=== PATIENT | male | born 2000 | race Two or more races ===

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

== ENCOUNTER 2022-09-24 14:06 | Inpatient (IN) | payer MEDICAID, OTHER ==
[~2022-09-24] VITALS: Ht 180.3 cm; Wt 80.4 kg
[~2022-09-24 14:06] MED LIST: DIVA500T53 PO; FOLI-130 PO; GUAN1TAB2 PO; MELA5TAB40 PO; MULT-1239 PO; OLAN5TAB94 PO; OMEG-135 PO; THIA100T80 PO
[2022-09-24] MEDS ORDERED: BACITRACIN 0.9 GM PACKET OINTMENT TP ONE (15:00)
[2022-09-24] MEDS ORDERED: LORazepam 2 MG/ML VIAL IM ONE (15:15)
[2022-09-24] MEDS ORDERED: DiphenhydrAMINE HCL 50 MG/ML VIAL IM ONE (15:15)
[2022-09-24] MEDS ORDERED: HALOPERIDOL LACTATE 5 MG/ML VIAL IM ONE (15:15)
[2022-09-24 15:46] LABS: COVID AG,FIA SOURCE NASOPHARYNGEAL
[2022-09-24 16:27] LABS: BASOPHILS % (AUTO) 0.5 % (0.0-2.0); EOSINOPHILS % (AUTO) 0.9 % (1.0-6.0); HEMATOCRIT 41.3 % (41-53); HEMOGLOBIN 13.8 g/dL (13.5-17.5); LYMPHOCYTES # (AUTO) 1.8 K/uL (1.0-4.8); LYMPHOCYTES % (AUTO) 16.5 % (22.0-44.0); MEAN CORPUSCULAR HEMOGLOBIN 33.8 pg (26.0-34.0); MEAN CORPUSCULAR HGB CONC 33.3 G/dL (31.0-37.0); MEAN CORPUSCULAR VOLUME 101 fL (80-100); MONOCYTES # (AUTO) 1.1 K/uL (0.1-1.0); MONOCYTES % (AUTO) 10.2 % (2.0-9.0); NEUTROPHILS # (AUTO) 7.9 K/uL (1.8-7.7); NEUTROPHILS % (AUTO) 71.9 % (40.0-70.0); PLATELET COUNT (AUTO) 202 K/uL (150-450); RED BLOOD CELL COUNT(AUTO) 4.08 MIL/uL (4.50-5.90); RED CELL DISTRIBUTION WIDTH 12.6 % (11.5-14.5)
[2022-09-24 16:35] LABS: ANION GAP 11 mmol/L (8-16); CALCIUM, TOTAL 9.8 mg/dL (8.8-10.5); CARBON DIOXIDE 28 mmol/L (22-29); CHLORIDE 103 mmol/L (98-107); GLOMERULAR FILTR. RATE CALC > 60 mL/min (>60); GLUCOSE,RANDOM 91 mg/dL (70-110); POTASSIUM 4.1 mmol/L (3.5-5.1); SODIUM SERUM 142 mmol/L (136-145); UREA NITROGEN, BLOOD 15 mg/dL (7-18)
[2022-09-24 16:41] LABS: ALANINE AMINOTRANSFERASE 61 U/L (12-78); ALKALINE PHOSPHATASE 66 U/L (46-116); ASPARTATE AMINOTRANSFERASE 52 U/L (15-37); BILIRUBIN,TOTAL 0.2 mg/dL (0.1-1.0); TOTAL PROTEIN, SERUM 7.6 g/dL (6.4-8.2)
[2022-09-24 17:00] LABS: AMPHET/METH SCREEN,URINE NEGATIVE (NEGATIVE); BARBITURATE SCREEN, URINE NEGATIVE (NEGATIVE); BENZODIAZEPINES SCREEN,URINE NEGATIVE (NEGATIVE); CANNABINOID SCREEN,URINE NEGATIVE (NEGATIVE); COCAINE SCREEN,URINE NEGATIVE (NEGATIVE); METHADONE SCREEN, URINE NEGATIVE (NEGATIVE); OPIATE SCREEN,URINE NEGATIVE (NEGATIVE); PHENCYCLIDINE SCREEN,URINE NEGATIVE (NEGATIVE)
[2022-09-24] MEDS ORDERED: LORazepam 2 MG TABLET PO PRN (23:15)
[2022-09-24] MEDS ORDERED: HALOPERIDOL 5 MG TABLET PO PRN (23:15)
[2022-09-24] MEDS ORDERED: ZOLPIDEM TARTRATE 10 MG TABLET PO PRN (23:15)
[2022-09-25] MEDS ORDERED: GuaiFENesin/D-METHORPHAN [SUGAR-FREE] 200-20MG/10 ML SYRUP UDCUP PO PRN (09:30)
[2022-09-25] MEDS ORDERED: ACETAMINOPHEN 325 MG TABLET PO PRN (09:30)
[2022-09-25] MEDS ORDERED: CloNIDine HCL 0.1 MG TABLET PO PRN (09:30)
[2022-09-25] MEDS ORDERED: IBUPROFEN 400 MG TABLET PO PRN (09:30)
[2022-09-25] MEDS ORDERED: MAGNESIUM HYDROXIDE SUSPENSION 30 ML UDCUP PO PRN (09:30)
[2022-09-25] MEDS ORDERED: PETROLATUM,WHITE 28 GM JELLY TP PRN (09:30)
[2022-09-25] MEDS ORDERED: ONDANSETRON HCL 4 MG TABLET PO PRN (09:30)
[2022-09-25] MEDS ORDERED: DOCUSATE SODIUM 100 MG CAPSULE PO PRN (09:30)
[2022-09-25] MEDS ORDERED: NICOTINE 14 MG/24 HOUR PATCH TD PRN (09:30)
[2022-09-25] MEDS ORDERED: LOPERAMIDE HCL 2 MG CAPSULE PO PRN (09:30)
[2022-09-25] MEDS ORDERED: MAG HYDROX/AL HYDROX/SIMETH ES 30 ML SUSPENSION UDCUP PO PRN (09:30)
[2022-09-25] MEDS ORDERED: ALBUTEROL SULFATE HFA 90 MCG/PUFF 8 GM INHALER IH PRN (09:30)
[2022-09-25 10:24] VITALS: BP 130/95
[2022-09-25] MEDS: LORazepam 2 MG TABLET PO PRN (13:26)
[2022-09-25] MEDS: HALOPERIDOL 5 MG TABLET PO PRN (13:26)
[2022-09-25] MEDS ORDERED: PNEUMOCOCCAL VACCINE POLYVALENT 0.5 ML VIAL [PPSV23] IM. ONE (14:15)
[2022-09-25] MEDS ORDERED: INFLUENZA VIRUS VACCINE QVS 2022-23 (6MO+)/PF 60 MCG/0.5 ML SYRINGE IM. ONE (14:15)
[2022-09-25] MEDS: BACITRACIN 28 GM OINTMENT TP SCH (16:28)
[2022-09-25] MEDS: THIAMINE 100 MG TABLET PO SCH (16:28)
[2022-09-25] MEDS: MELATONIN 5 MG TABLET PO SCH (20:20)
[2022-09-25 23:58] VITALS: BP 124/89
[2022-09-26 08:10] VITALS: BP 131/76
[2022-09-26] MEDS: HALOPERIDOL 5 MG TABLET PO PRN ×2 (08:31→16:07)
[2022-09-26] MEDS: THIAMINE 100 MG TABLET PO SCH ×2 (08:31→16:06)
[2022-09-26] MEDS: LORazepam 2 MG TABLET PO PRN ×3 (08:31→20:21)
[2022-09-26] MEDS: FOLIC ACID 1 MG TABLET PO SCH (08:31)
[2022-09-26] MEDS: OMEGA-3/DHA/EPA/FISH OIL 1,000 MG CAPSULE PO SCH (08:31)
[2022-09-26] MEDS: BACITRACIN 28 GM OINTMENT TP SCH ×2 (08:32→16:12)
[2022-09-26] MEDS: DIVALPROEX SODIUM 500 MG ER TABLET PO SCH ×3 (10:40→20:25)
[2022-09-26] MEDS: MELATONIN 5 MG TABLET PO SCH (20:21)
[2022-09-26] MEDS: OLANZapine 5 MG RAPDIS TABLET PO SCH (20:21)
[2022-09-26] MEDS: ZOLPIDEM TARTRATE 10 MG TABLET PO PRN (20:21)
[2022-09-26 20:22] VITALS: BP 136/82
[2022-09-27 08:10] VITALS: BP 117/70
[2022-09-27] MEDS: OMEGA-3/DHA/EPA/FISH OIL 1,000 MG CAPSULE PO SCH (08:49)
[2022-09-27] MEDS: THIAMINE 100 MG TABLET PO SCH ×2 (08:49→16:31)
[2022-09-27] MEDS: DIVALPROEX SODIUM 500 MG ER TABLET PO SCH ×3 (08:49→20:38)
[2022-09-27] MEDS: FOLIC ACID 1 MG TABLET PO SCH (08:49)
[2022-09-27] MEDS: HALOPERIDOL 5 MG TABLET PO PRN (08:49)
[2022-09-27] MEDS: BACITRACIN 28 GM OINTMENT TP SCH ×2 (08:50→16:31)
[2022-09-27] MEDS: LORazepam 2 MG TABLET PO PRN ×3 (08:50→20:39)
[2022-09-27] MEDS: OLANZapine 5 MG RAPDIS TABLET PO SCH (20:38)
[2022-09-27] MEDS: ZOLPIDEM TARTRATE 10 MG TABLET PO PRN (20:39)
[2022-09-27] MEDS: MELATONIN 5 MG TABLET PO SCH (20:39)
[2022-09-27 22:19] VITALS: BP 140/83
[2022-09-28 08:44] VITALS: BP 117/70
[2022-09-28] MEDS: FOLIC ACID 1 MG TABLET PO SCH (08:49)
[2022-09-28] MEDS: THIAMINE 100 MG TABLET PO SCH ×2 (08:49→17:49)
[2022-09-28] MEDS: DIVALPROEX SODIUM 500 MG ER TABLET PO SCH ×3 (08:49→21:04)
[2022-09-28] MEDS: OMEGA-3/DHA/EPA/FISH OIL 1,000 MG CAPSULE PO SCH (08:49)
[2022-09-28] MEDS: BACITRACIN 28 GM OINTMENT TP SCH ×2 (08:49→17:48)
[2022-09-28] MEDS ORDERED: DiphenhydrAMINE HCL 50 MG/ML VIAL ONE (11:05)
[2022-09-28] MEDS ORDERED: LORazepam 2 MG/ML VIAL ONE (11:05)
[2022-09-28] MEDS ORDERED: HALOPERIDOL LACTATE 5 MG/ML VIAL ONE (11:05)
[2022-09-28] MEDS ORDERED: DiphenhydrAMINE HCL 50 MG/ML VIAL IM ONE (11:15)
[2022-09-28] MEDS ORDERED: HALOPERIDOL LACTATE 5 MG/ML VIAL IM ONE (11:15)
[2022-09-28] MEDS ORDERED: LORazepam 2 MG/ML VIAL IM ONE (11:15)
[2022-09-28 20:24] VITALS: BP 122/83
[2022-09-28] MEDS: OLANZapine 5 MG RAPDIS TABLET PO SCH (21:06)
[2022-09-28] MEDS: MELATONIN 5 MG TABLET PO SCH (21:06)
[2022-09-29 08:20] VITALS: BP 137/82
[2022-09-29] MEDS: OMEGA-3/DHA/EPA/FISH OIL 1,000 MG CAPSULE PO SCH (08:28)
[2022-09-29] MEDS: FOLIC ACID 1 MG TABLET PO SCH (08:28)
[2022-09-29] MEDS: THIAMINE 100 MG TABLET PO SCH ×2 (08:28→16:47)
[2022-09-29] MEDS: DIVALPROEX SODIUM 500 MG ER TABLET PO SCH ×3 (08:28→20:08)
[2022-09-29] MEDS: BACITRACIN 28 GM OINTMENT TP SCH ×2 (08:30→16:48)
[2022-09-29] MEDS: LORazepam 2 MG TABLET PO PRN (12:52)
[2022-09-29] MEDS: HALOPERIDOL 5 MG TABLET PO PRN (12:53)
[2022-09-29] MEDS ORDERED: DiphenhydrAMINE HCL 50 MG/ML VIAL ONE (13:27)
[2022-09-29] MEDS ORDERED: HALOPERIDOL LACTATE 5 MG/ML VIAL ONE (13:28)
[2022-09-29] MEDS ORDERED: LORazepam 2 MG/ML VIAL IM ONE (13:30)
[2022-09-29] MEDS ORDERED: DiphenhydrAMINE HCL 50 MG/ML VIAL IM ONE (13:30)
[2022-09-29] MEDS ORDERED: HALOPERIDOL DECANOATE 50 MG/ML VIAL IM ONE (13:30)
[2022-09-29] MEDS ORDERED: HALOPERIDOL LACTATE 5 MG/ML VIAL IM ONE (14:00)
[2022-09-29] MEDS: MELATONIN 5 MG TABLET PO SCH (20:08)
[2022-09-29] MEDS: OLANZapine 5 MG RAPDIS TABLET PO SCH (20:08)
[2022-09-29 20:14] VITALS: BP 124/76
[2022-09-30] MEDS: DIVALPROEX SODIUM 500 MG ER TABLET PO SCH ×3 (07:52→20:33)
[2022-09-30] MEDS: OMEGA-3/DHA/EPA/FISH OIL 1,000 MG CAPSULE PO SCH (07:53)
[2022-09-30] MEDS: THIAMINE 100 MG TABLET PO SCH ×2 (07:53→16:27)
[2022-09-30] MEDS: LORazepam 2 MG TABLET PO PRN ×3 (07:53→20:33)
[2022-09-30] MEDS: FOLIC ACID 1 MG TABLET PO SCH (07:53)
[2022-09-30] MEDS: HALOPERIDOL 5 MG TABLET PO PRN ×2 (07:53→16:27)
[2022-09-30 08:10] VITALS: BP 132/89
[2022-09-30] MEDS: BACITRACIN 28 GM OINTMENT TP SCH ×2 (10:18→17:05)
[2022-09-30] MEDS: OLANZapine 5 MG RAPDIS TABLET PO SCH (20:33)
[2022-09-30] MEDS: MELATONIN 5 MG TABLET PO SCH (20:33)
[2022-09-30] MEDS: ZOLPIDEM TARTRATE 10 MG TABLET PO PRN (20:33)
[2022-09-30 22:30] VITALS: BP 122/72
[2022-10-01 06:36] LABS: GLUCOMETER DEV NAME(LOC) POC.BV
[2022-10-01] MEDS: THIAMINE 100 MG TABLET PO SCH (08:19)
[2022-10-01] MEDS: FOLIC ACID 1 MG TABLET PO SCH (08:19)
[2022-10-01] MEDS: DIVALPROEX SODIUM 500 MG ER TABLET PO SCH (08:19)
[2022-10-01] MEDS: OMEGA-3/DHA/EPA/FISH OIL 1,000 MG CAPSULE PO SCH (08:19)
[2022-10-01] MEDS: BACITRACIN 28 GM OINTMENT TP SCH (08:39)
[2022-10-01 09:17] VITALS: BP 104/60
[2022-10-01] MEDS ORDERED: THIA100T80 PO (09:45)
[2022-10-01] MEDS ORDERED: DIVA500T69 PO (09:45)
[2022-10-01] MEDS ORDERED: OLAN5TAB94 PO (09:45)
[2022-10-01] MEDS ORDERED: OMEG-135 PO (09:45)
[2022-10-01] MEDS ORDERED: FOLI-130 PO (09:45)
[2022-10-01] MEDS ORDERED: MELA5TAB40 PO (09:45)
== END 2022-10-01 12:00 | disposition home or self-care (01) | DRG 750 ==
LOC: EMS 14:14 → B3A 09-25 07:42
PROVIDERS: ADMIT Psychiatry & Neurology Psychiatry; ATTEND Psychiatry & Neurology Psychiatry
DX: F25.0 Schizoaffective disorder, bipolar type (principal); R45.850 Homicidal ideations; F79 Unspecified intellectual disabilities; Z20.822 Contact with and (suspected) exposure to COVID-19; K59.00 Constipation, unspecified; S60.511A Abrasion of right hand, initial encounter; Z79.899 Other long term (current) drug therapy
CPT/HCPCS: 80053; 80307; 85025; 99285; G0480; J1200; J1630; J2060; Q9967

== ENCOUNTER 2024-03-22 16:14 | Inpatient (IN) | payer MEDICAID, OTHER ==
[~2024-03-22] VITALS: Ht 172.7 cm; Wt 85.7 kg
[~2024-03-22 16:14] MED LIST changes: -DIVA500T53 PO; +DIVA500T69 PO; -GUAN1TAB2 PO; -MULT-1239 PO
[2024-03-22] MEDS ORDERED: LURA60TA PO (16:31)
[2024-03-22] MEDS ORDERED: LURA80TA2 PO (16:31)
[2024-03-22] MEDS ORDERED: GUAN1TAB22 PO (16:31)
[2024-03-22] MEDS ORDERED: HALOPERIDOL 5 MG TABLET PO ONE (17:30)
[2024-03-22] MEDS ORDERED: LORazepam 2 MG TABLET PO ONE (17:30)
[2024-03-22 17:33] LABS: APPEARANCE,URINE CLEAR (CLEAR); BILIRUBIN,URINE NEGATIVE (NEGATIVE); COLOR,URINE COLORLESS (YELLOW); GLUCOSE, URINE (UA) NEGATIVE (NEGATIVE); KETONES,URINE NEGATIVE (NEGATIVE); LEUKOCYTE ESTERASE ,URINE NEGATIVE (NEGATIVE); NITRATE,URINE NEGATIVE (NEGATIVE); OCCULT BLOOD,URINE NEGATIVE (NEGATIVE); PROTEIN,URINE NEGATIVE (NEGATIVE); SPECIFIC GRAVITIY, URINE 1.005 (1.003-1.030); UROBILINOGEN,URINE <=1.0 mg/dL (<=1.0)
[2024-03-22 17:48] LABS: BARBITURATE SCREEN, URINE NEGATIVE (NEGATIVE); BENZODIAZEPINES SCREEN,URINE NEGATIVE (NEGATIVE); CANNABINOID SCREEN,URINE NEGATIVE (NEGATIVE); COCAINE SCREEN,URINE NEGATIVE (NEGATIVE); METHADONE SCREEN, URINE NEGATIVE (NEGATIVE); OPIATE SCREEN,URINE NEGATIVE (NEGATIVE); PHENCYCLIDINE SCREEN,URINE NEGATIVE (NEGATIVE)
[2024-03-22 17:49] LABS: ALCOHOL, URINE DRUG SCREEN NEGATIVE (NEGATIVE)
[2024-03-22 17:52] LABS: BASOPHILS % (AUTO) 0.7 % (0.0-2.0); EOSINOPHILS % (AUTO) 0.5 % (1.0-6.0); HEMATOCRIT 45.5 % (41-53); HEMOGLOBIN 15.3 g/dL (13.5-17.5); LYMPHOCYTES # (AUTO) 2.4 K/uL (1.0-4.8); LYMPHOCYTES % (AUTO) 22.3 % (22.0-44.0); MEAN CORPUSCULAR HEMOGLOBIN 31.8 pg (26.0-34.0); MEAN CORPUSCULAR HGB CONC 33.5 G/dL (31.0-37.0); MEAN CORPUSCULAR VOLUME 95 fL (80-100); MONOCYTES # (AUTO) 0.7 K/uL (0.1-1.0); MONOCYTES % (AUTO) 6.4 % (2.0-9.0); NEUTROPHILS # (AUTO) 7.5 K/uL (1.8-7.7); NEUTROPHILS % (AUTO) 70.1 % (40.0-70.0); PLATELET COUNT (AUTO) 309 K/uL (150-450); RED BLOOD CELL COUNT(AUTO) 4.79 MIL/uL (4.50-5.90); RED CELL DISTRIBUTION WIDTH 12.7 % (11.5-14.5); WHITE BLOOD COUNT (AUTO) 10.7 K/uL (4.5-11.0)
[2024-03-22] MEDS: DiphenhydrAMINE HCL 50 MG/ML VIAL IM ONE (17:54)
[2024-03-22] MEDS: HALOPERIDOL LACTATE 5 MG/ML VIAL IM ONE (17:55)
[2024-03-22] MEDS: LORazepam 2 MG/ML VIAL IM ONE (17:55)
[2024-03-22 17:57] LABS: AMPHET/METH SCREEN,URINE NEGATIVE (NEGATIVE)
[2024-03-22 17:58] LABS: ANION GAP 12 mmol/L (8-16); CARBON DIOXIDE 27 mmol/L (22-29); CHLORIDE 101 mmol/L (98-107); CREATININE 1.06 mg/dL (0.60-1.30); GLOMERULAR FILTR. RATE CALC > 60 mL/min (>60); GLUCOSE,RANDOM 110 mg/dL (70-110); POTASSIUM 3.9 mmol/L (3.5-5.1); SODIUM SERUM 140 mmol/L (136-145); UREA NITROGEN, BLOOD 13 mg/dL (7-18)
[2024-03-22 18:07] LABS: ALCOHOL, BLOOD (SERUM) < 3 mg/dL (0-10)
[2024-03-22 19:26] LABS: COVID AG,FIA SOURCE NASAL SWAB
[2024-03-22 20:10] LABS: SARS-COV2 (COVID) ANTIGEN,FIA Negative (Negative)
[2024-03-22 22:30] VITALS: O2SAT 95
[2024-03-23 00:42] VITALS: BP 117/63; PULSE 94; RESP 18; TEMP 97.2; O2SAT 99
[2024-03-23] MEDS: ZOLPIDEM TARTRATE 10 MG TABLET PO PRN (02:37)
[2024-03-23] MEDS: LORazepam 2 MG TABLET PO PRN (02:37)
[2024-03-23] MEDS ORDERED: MAGNESIUM HYDROXIDE SUSPENSION 30 ML UDCUP PO PRN (07:30)
[2024-03-23] MEDS ORDERED: CloNIDine HCL 0.1 MG TABLET PO PRN (07:30)
[2024-03-23] MEDS ORDERED: BENZOCAINE/MENTHOL LOZENGE PO PRN (07:30)
[2024-03-23] MEDS ORDERED: ALBUTEROL SULFATE HFA 90 MCG/PUFF 8 GM INHALER IH PRN (07:30)
[2024-03-23] MEDS ORDERED: IBUPROFEN 600 MG TABLET PO PRN (07:30)
[2024-03-23] MEDS ORDERED: OMEPRAZOLE 20 MG CAPSULE PO PRN (07:30)
[2024-03-23] MEDS ORDERED: DOCUSATE SODIUM 100 MG CAPSULE PO PRN (07:30)
[2024-03-23] MEDS ORDERED: LOPERAMIDE HCL 2 MG CAPSULE PO PRN (07:30)
[2024-03-23] MEDS ORDERED: ACETAMINOPHEN 325 MG TABLET PO PRN (07:30)
[2024-03-23] MEDS ORDERED: BACITRACIN 28 GM OINTMENT TP PRN (07:30)
[2024-03-23] MEDS ORDERED: PETROLATUM,WHITE 28 GM JELLY TP PRN (07:30)
[2024-03-23 08:05] VITALS: BP 145/60; PULSE 69; RESP 18; TEMP 97.4; O2SAT 99
[2024-03-23] MEDS: OMEGA-3/DHA/EPA/FISH OIL 1,000 MG CAPSULE PO SCH (08:16)
[2024-03-23 20:35] VITALS: BP 120/75; PULSE 101; RESP 18; TEMP 97.6; O2SAT 100
[2024-03-24 09:05] VITALS: BP 120/78; PULSE 90; RESP 18; TEMP 97.9; O2SAT 100
[2024-03-24] MEDS: HALOPERIDOL 5 MG TABLET PO PRN (11:21)
[2024-03-24] MEDS: LURASIDONE HCL 60 MG TABLET PO SCH (16:03)
[2024-03-24] MEDS: OLANZapine 5 MG TABLET PO SCH (20:13)
[2024-03-24 20:33] VITALS: BP 123/71; PULSE 91; RESP 16; TEMP 97.9; O2SAT 100
[2024-03-25 08:04] VITALS: BP 114/66; PULSE 100; RESP 17; TEMP 97.5; O2SAT 98
[2024-03-25] MEDS ORDERED: DiphenhydrAMINE HCL 50 MG/ML VIAL ONE (13:26)
[2024-03-25] MEDS ORDERED: LORazepam 2 MG/ML VIAL ONE (13:26)
[2024-03-25] MEDS ORDERED: HALOPERIDOL LACTATE 5 MG/ML VIAL ONE (13:26)
[2024-03-25] MEDS: LORazepam 2 MG/ML VIAL IM ONE (13:34)
[2024-03-25] MEDS: HALOPERIDOL LACTATE 5 MG/ML VIAL IM ONE (13:35)
[2024-03-25] MEDS: DiphenhydrAMINE HCL 50 MG/ML VIAL IM ONE (13:35)
[2024-03-25 14:26] VITALS: BP 110/68; PULSE 80; RESP 17; TEMP 98; O2SAT 97
[2024-03-25 20:22] VITALS: BP 118/70; PULSE 82; RESP 17; TEMP 97.8; O2SAT 97
[2024-03-26 08:24] VITALS: BP 128/88; PULSE 103; RESP 17; TEMP 97.9; O2SAT 97
[2024-03-26] MEDS: MAG HYDROX/ALUMINUM HYD/SIMETH ES 30 ML SUSPENSION UDCUP PO PRN (12:25)
[2024-03-26] MEDS: ONDANSETRON 4 MG TABLET PO PRN (12:25)
[2024-03-26 20:02] VITALS: BP 134/84; PULSE 98; RESP 18; TEMP 98; O2SAT 98
[2024-03-27 08:16] VITALS: BP 104/63; PULSE 90; RESP 17; TEMP 97.5; O2SAT 97
[2024-03-27] MEDS ORDERED: LURASIDONE HCL 80 MG TABLET PO SCH (17:00)
== END 2024-03-27 12:00 | disposition home or self-care (01) | DRG 750 ==
LOC: EMS 16:14 → B3A 03-23 00:07
PROVIDERS: ADMIT Psychiatry & Neurology Psychiatry; ATTEND Psychiatry & Neurology Psychiatry
DX: F25.0 Schizoaffective disorder, bipolar type (principal); R45.851 Suicidal ideations; F10.10 Alcohol abuse, uncomplicated; G47.00 Insomnia, unspecified; Z20.822 Contact with and (suspected) exposure to COVID-19; K59.00 Constipation, unspecified; F41.9 Anxiety disorder, unspecified; F84.0 Autistic disorder; Z91.199 Patient's noncompliance with other medical treatment and regimen due to unspecified reason
CPT/HCPCS: 80048; 80307; 81003; 85025; 99285; G0480; J1200; J1630; J2060; Q0162

== ENCOUNTER 2024-04-14 16:28 | Inpatient (IN) | payer MEDICAID, OTHER ==
[~2024-04-14] VITALS: Ht 170.2 cm; Wt 84.1 kg
[~2024-04-14 16:28] MED LIST changes: -DIVA500T69 PO; -FOLI-130 PO; +LURA80TA2 PO; -MELA5TAB40 PO; -OLAN5TAB94 PO; -OMEG-135 PO; -THIA100T80 PO
[2024-04-14] MEDS ORDERED: OLAN15TA98 PO (16:38)
[2024-04-14] MEDS ORDERED: GUAN1TAB2 PO (16:38)
[2024-04-14] MEDS ORDERED: OLAN5TAB77 PO (16:38)
[2024-04-14] MEDS ORDERED: HYDR-4808 PO (16:38)
[2024-04-14] MEDS: HALOPERIDOL LACTATE 5 MG/ML VIAL IM ONE (16:58)
[2024-04-14] MEDS: LORazepam 2 MG/ML VIAL IM ONE (16:58)
[2024-04-14] MEDS: DiphenhydrAMINE HCL 50 MG/ML VIAL IM ONE (16:58)
[2024-04-14 18:24] LABS: COVID AG,FIA SOURCE NASAL SWAB
[2024-04-14 18:31] LABS: BASOPHILS % (AUTO) 0.4 % (0.0-2.0); EOSINOPHILS % (AUTO) 0.5 % (1.0-6.0); HEMATOCRIT 43.6 % (41-53); HEMOGLOBIN 14.5 g/dL (13.5-17.5); LYMPHOCYTES # (AUTO) 1.9 K/uL (1.0-4.8); LYMPHOCYTES % (AUTO) 19.4 % (22.0-44.0); MEAN CORPUSCULAR HEMOGLOBIN 31.9 pg (26.0-34.0); MEAN CORPUSCULAR HGB CONC 33.4 G/dL (31.0-37.0); MEAN CORPUSCULAR VOLUME 95 fL (80-100); MONOCYTES # (AUTO) 0.7 K/uL (0.1-1.0); NEUTROPHILS # (AUTO) 7.2 K/uL (1.8-7.7); NEUTROPHILS % (AUTO) 72.7 % (40.0-70.0); PLATELET COUNT (AUTO) 298 K/uL (150-450); RED BLOOD CELL COUNT(AUTO) 4.57 MIL/uL (4.50-5.90); WHITE BLOOD COUNT (AUTO) 9.9 K/uL (4.5-11.0)
[2024-04-14 18:38] LABS: APPEARANCE,URINE CLEAR (CLEAR); BILIRUBIN,URINE NEGATIVE (NEGATIVE); COLOR,URINE LIGHT YELLOW (YELLOW); GLUCOSE, URINE (UA) NEGATIVE (NEGATIVE); KETONES,URINE NEGATIVE (NEGATIVE); LEUKOCYTE ESTERASE ,URINE NEGATIVE (NEGATIVE); NITRATE,URINE NEGATIVE (NEGATIVE); OCCULT BLOOD,URINE NEGATIVE (NEGATIVE); PH,URINE 6.5 (5.0-8.0); PROTEIN,URINE NEGATIVE (NEGATIVE); SPECIFIC GRAVITIY, URINE 1.012 (1.003-1.030); UROBILINOGEN,URINE <=1.0 mg/dL (<=1.0)
[2024-04-14 18:42] LABS: ANION GAP 11 mmol/L (8-16); CALCIUM, TOTAL 9.7 mg/dL (8.8-10.5); CARBON DIOXIDE 27 mmol/L (22-29); CHLORIDE 102 mmol/L (98-107); GLOMERULAR FILTR. RATE CALC > 60 mL/min (>60); GLUCOSE,RANDOM 96 mg/dL (70-110); POTASSIUM 3.9 mmol/L (3.5-5.1); SODIUM SERUM 140 mmol/L (136-145); UREA NITROGEN, BLOOD 11 mg/dL (7-18)
[2024-04-14 18:45] LABS: ALCOHOL, BLOOD (SERUM) < 3 mg/dL (0-10)
[2024-04-14 18:46] LABS: ALCOHOL, URINE DRUG SCREEN NEGATIVE (NEGATIVE); AMPHET/METH SCREEN,URINE NEGATIVE (NEGATIVE); BARBITURATE SCREEN, URINE NEGATIVE (NEGATIVE); BENZODIAZEPINES SCREEN,URINE NEGATIVE (NEGATIVE); CANNABINOID SCREEN,URINE NEGATIVE (NEGATIVE); COCAINE SCREEN,URINE NEGATIVE (NEGATIVE); METHADONE SCREEN, URINE NEGATIVE (NEGATIVE); OPIATE SCREEN,URINE NEGATIVE (NEGATIVE); PHENCYCLIDINE SCREEN,URINE NEGATIVE (NEGATIVE)
[2024-04-14 19:03] LABS: PH,URINE DRUG SCREEN 6.5 (5.0-8.0)
[2024-04-14 19:09] LABS: SARS-COV2 (COVID) ANTIGEN,FIA Negative (Negative)
[2024-04-15 09:03] VITALS: BP 111/75; PULSE 83; RESP 18; TEMP 97.3; O2SAT 97
[2024-04-15] MEDS: HALOPERIDOL 5 MG TABLET PO PRN (09:33)
[2024-04-15] MEDS: LORazepam 2 MG TABLET PO PRN (09:34)
[2024-04-15] MEDS ORDERED: [UNRECOGNIZED DRUG - CODE] PO (15:10)
[2024-04-15] MEDS: DIVALPROEX SODIUM 500 MG DR TABLET PO SCH (17:11)
[2024-04-15] MEDS: LITHIUM CARBONATE 300 MG CAPSULE PO SCH (17:11)
[2024-04-15] MEDS: LURASIDONE HCL 80 MG TABLET PO SCH (20:43)
[2024-04-15 20:51] VITALS: BP 123/70; PULSE 103; RESP 18; TEMP 97.8
[2024-04-15] MEDS: ZOLPIDEM TARTRATE 10 MG TABLET PO PRN (20:51)
[2024-04-16 08:09] VITALS: BP 123/59; PULSE 85; RESP 16; TEMP 97.7
[2024-04-16 08:51] LABS: CHOL/HDL RATIO 2.5 (4.2-7.3); FREE T4 (FREE THYROXINE) 1.21 ng/dL (0.76-1.46); THYROID STIMULATING HORMONE 3.44 uIU/mL (0.36-3.74)
[2024-04-16] MEDS ORDERED: ACETAMINOPHEN 325 MG TABLET PO PRN (14:30)
[2024-04-16] MEDS ORDERED: CloNIDine HCL 0.1 MG TABLET PO PRN (14:30)
[2024-04-16] MEDS ORDERED: MAGNESIUM HYDROXIDE SUSPENSION 30 ML UDCUP PO PRN (14:30)
[2024-04-16] MEDS ORDERED: PETROLATUM,WHITE 28 GM JELLY TP PRN (14:30)
[2024-04-16] MEDS ORDERED: ONDANSETRON 4 MG TABLET PO PRN (14:30)
[2024-04-16] MEDS ORDERED: DOCUSATE SODIUM 100 MG CAPSULE PO PRN (14:30)
[2024-04-16] MEDS ORDERED: ALBUTEROL SULFATE HFA 90 MCG/PUFF 8 GM INHALER IH PRN (14:30)
[2024-04-16] MEDS ORDERED: BACITRACIN 28 GM OINTMENT TP PRN (14:30)
[2024-04-16] MEDS ORDERED: IBUPROFEN 600 MG TABLET PO PRN (14:30)
[2024-04-16] MEDS ORDERED: OMEPRAZOLE 20 MG CAPSULE PO PRN (14:30)
[2024-04-16] MEDS ORDERED: BENZOCAINE/MENTHOL LOZENGE PO PRN (14:30)
[2024-04-16] MEDS ORDERED: LOPERAMIDE HCL 2 MG CAPSULE PO PRN (14:30)
[2024-04-16] MEDS ORDERED: MAG HYDROX/ALUMINUM HYD/SIMETH ES 30 ML SUSPENSION UDCUP PO PRN (14:30)
[2024-04-16 20:12] VITALS: BP 118/80; PULSE 79; RESP 18; TEMP 97.7; O2SAT 100
[2024-04-17 08:26] VITALS: BP 142/88; PULSE 102; RESP 18; TEMP 97.3; O2SAT 98
[2024-04-17 20:41] VITALS: BP 127/59; PULSE 96; RESP 18; TEMP 97.7; O2SAT 99
[2024-04-17 23:45] VITALS: BP 124/62; PULSE 97; RESP 18; TEMP 97.7; O2SAT 99
[2024-04-17 23:54] VITALS: RESP 18
[2024-04-18 08:25] VITALS: BP 128/73; PULSE 99; RESP 17; TEMP 97.8; O2SAT 100
[2024-04-18 08:36] LABS: LITHIUM 0.29 mmol/L (0.60-1.20)
[2024-04-18 21:43] VITALS: BP 131/68; PULSE 95; RESP 18; TEMP 97.6; O2SAT 99
[2024-04-19 08:08] VITALS: BP 129/84; PULSE 112; RESP 18; TEMP 98.1; O2SAT 98
[2024-04-20 01:17] VITALS: TEMP 98.1
[2024-04-20 08:12] VITALS: BP 106/74; PULSE 97; RESP 16; TEMP 97.7; O2SAT 97
[2024-04-20 20:00] VITALS: BP 131/90; PULSE 124; RESP 16; TEMP 97.8; O2SAT 97
[2024-04-21 08:18] VITALS: BP 134/76; PULSE 109; RESP 16; TEMP 97.3; O2SAT 97
[2024-04-21] MEDS ORDERED: DIVA-112 PO (10:19)
[2024-04-21] MEDS ORDERED: LITH300C3 PO (10:19)
[2024-04-21] MEDS ORDERED: LURA80TA2 PO (10:19)
== END 2024-04-21 14:04 | disposition home or self-care (01) | DRG 750 ==
LOC: EMS 16:29 → B3A 04-15 06:17 → UNDOADMIN 04-15 06:17 → B3A 04-15 06:33
PROVIDERS: ADMIT Psychiatry & Neurology Psychiatry; ATTEND Psychiatry & Neurology Psychiatry
DX: F25.0 Schizoaffective disorder, bipolar type (principal); F10.10 Alcohol abuse, uncomplicated; F41.9 Anxiety disorder, unspecified; Z20.822 Contact with and (suspected) exposure to COVID-19; G47.00 Insomnia, unspecified; F84.0 Autistic disorder; K59.00 Constipation, unspecified; Z79.899 Other long term (current) drug therapy
CPT/HCPCS: 80048; 80061; 80164; 80178; 80307; 81003; 84439; 84443; 85025; 99291; G0480; J1200; J1630; J2060

== ENCOUNTER → 2024-04-19 | Emergency (ER) | payer MEDICAID, OTHER ==
[~2024-04-19] VITALS: Ht 180.3 cm; Wt 72.7 kg
[~2024-04-19] MED LIST changes: +DIVA-112 PO; +GUAN1TAB2 PO; +HYDR-4808 PO; +LITH300C3 PO; +LORazepam 2 MG TABLET PO ONE; +OLAN15TA36 PO; +OLAN5TAB77 PO; +[UNRECOGNIZED DRUG - CODE] PO
[2024-04-19 18:02] VITALS: TEMP 97.9
[2024-04-19 18:28] LABS: BASOPHILS % (AUTO) 0.6 % (0.0-2.0); EOSINOPHILS % (AUTO) 0.6 % (1.0-6.0); HEMATOCRIT 46.8 % (41-53); HEMOGLOBIN 15.5 g/dL (13.5-17.5); LYMPHOCYTES # (AUTO) 1.9 K/uL (1.0-4.8); LYMPHOCYTES % (AUTO) 15.2 % (22.0-44.0); MEAN CORPUSCULAR HEMOGLOBIN 31.5 pg (26.0-34.0); MEAN CORPUSCULAR HGB CONC 33.2 G/dL (31.0-37.0); MEAN CORPUSCULAR VOLUME 95 fL (80-100); MONOCYTES # (AUTO) 1.1 K/uL (0.1-1.0); MONOCYTES % (AUTO) 8.2 % (2.0-9.0); NEUTROPHILS # (AUTO) 9.7 K/uL (1.8-7.7); NEUTROPHILS % (AUTO) 75.4 % (40.0-70.0); PLATELET COUNT (AUTO) 330 K/uL (150-450); RED BLOOD CELL COUNT(AUTO) 4.92 MIL/uL (4.50-5.90); RED CELL DISTRIBUTION WIDTH 13.2 % (11.5-14.5); WHITE BLOOD COUNT (AUTO) 12.8 K/uL (4.5-11.0)
[2024-04-19 18:38] LABS: ANION GAP 13 mmol/L (8-16); CALCIUM, TOTAL 9.8 mg/dL (8.8-10.5); CARBON DIOXIDE 25 mmol/L (22-29); CHLORIDE 103 mmol/L (98-107); CREATININE 0.76 mg/dL (0.60-1.30); GLOMERULAR FILTR. RATE CALC > 60 mL/min (>60); GLUCOSE,RANDOM 97 mg/dL (70-110); SODIUM SERUM 141 mmol/L (136-145); UREA NITROGEN, BLOOD 6 mg/dL (7-18)
[2024-04-19 18:43] LABS: ALANINE AMINOTRANSFERASE 39 U/L (12-78); ALBUMIN 4.3 g/dL (3.4-5.0); ALKALINE PHOSPHATASE 81 U/L (46-116); ASPARTATE AMINOTRANSFERASE 21 U/L (15-37); BILIRUBIN,TOTAL 0.4 mg/dL (0.1-1.0); TOTAL PROTEIN, SERUM 8.4 g/dL (6.4-8.2)
[2024-04-19 18:47] LABS: ALCOHOL, BLOOD (SERUM) < 3 mg/dL (0-10)
[2024-04-19] MEDS: LORazepam 2 MG/ML VIAL IM ONE (20:51)
[2024-04-19] MEDS: HALOPERIDOL LACTATE 5 MG/ML VIAL IM ONE (20:51)
[2024-04-19] MEDS: DiphenhydrAMINE HCL 50 MG/ML VIAL IM ONE (20:51)
[2024-04-19 22:32] VITALS: BP 128/77; PULSE 78; RESP 16; O2SAT 100
== END ==
LOC: EMS 17:04
DX: F25.0 Schizoaffective disorder, bipolar type (principal); R07.9 Chest pain, unspecified
CPT/HCPCS: 99291; 80048; 80076; 85025; 36415; 93005; 96372; G0480; J1200; J1630; J2060